=== PATIENT | female | born 1985 | race African-American/Black ===

== ENCOUNTER 2017-03-16 09:25 | Inpatient (IN) | payer MEDICAID ==
[~2017-03-16] VITALS: Ht 172.7 cm; Wt 75.5 kg
[2017-03-16 09:57] VITALS: Ht 172.7 cm; Wt 75.5 kg
[2017-03-16] MEDS ORDERED: PRENAT PO (10:01)
[2017-03-16] MEDS ORDERED: LACTATED RINGER'S 1,000 ML IV SCH (10:43)
[2017-03-16 11:00] LABS: ADD SCAN DIFF NO
[2017-03-16] MEDS ORDERED: METHYLERGONOVINE 0.2 MG INJ IM PRN ×2 (11:00→17:30)
[2017-03-16] MEDS ORDERED: CEFAZOLIN 2 GM/50 ML (PMX) 50 ML IVPB SCH (11:00)
[2017-03-16] MEDS ORDERED: OXYTOCIN 30 UNITS/LR 500 ML IV SCH (11:00)
[2017-03-16] MEDS ORDERED: MISOPROSTOL 200 MCG TAB PR PRN ×2 (11:00→17:30)
[2017-03-16] MEDS ORDERED: CARBOPROST 250 MCG INJ IM PRN ×2 (11:00→17:30)
[2017-03-16] MEDS ORDERED: OXYTOCIN 30 UNITS/LR 500 ML IV PRN ×2 (11:00→17:30)
[2017-03-16 11:04] LABS: BASOPHILS % 0.2 % (0.0-2.0); EOSINOPHILS % 0.7 % (0.0-7.0); LYMPHOCYTES # 1.2 10^3/ul (0.8-2.9); LYMPHOCYTES % 22.4 % (15.0-51.0); MEAN CORPUSCULAR HEMOGLOBIN 31.7 pg (29.0-33.0); MEAN CORPUSCULAR HGB CONC 33.3 g/dl (32.0-37.0); MEAN PLATELET VOLUME 12.9 fl (7.4-10.4); MONOCYTE # 0.6 10^3/ul (0.3-0.9); MONOCYTES % 10.7 % (0.0-11.0); NEUTROPHIL # 3.6 10^3/ul (1.6-7.5); NEUTROPHILS % 65.5 % (39.0-77.0); PLATELET COUNT 142 10^3/UL (140-415); RED BLOOD COUNT 3.79 10^6/ul (4.20-5.40); RED CELL DISTRIBUTION WIDTH 14.1 % (11.5-14.5); WHITE BLOOD COUNT 5.5 10^3/ul (4.8-10.8)
[2017-03-16 11:15] LABS: INR 0.92; PROTIME 12.4 Sec (12.2-14.2)
[2017-03-16 11:16] LABS: PARTIAL THROMBOPLASTIN TIME 25.4 Sec (25.0-35.0)
[2017-03-16] MEDS ORDERED: FENTAnyl 50 MCG/ML VIAL ONE ×2 (13:15→13:30)
[2017-03-16] MEDS ORDERED: morphine SULFATE/PF (10 MG/10 ML) INJ ONE (13:15)
[2017-03-16] MEDS ORDERED: PHENYLephrine (100 MCG/ML) 5ML SYG ONE ×2 (13:16→13:17)
[2017-03-16] MEDS ORDERED: DEXAMETHASONE 4 MG/ML 1 ML INJ ONE (13:17)
[2017-03-16] MEDS ORDERED: MIDAZOLAM 1 MG/ML 2 ML INJ ONE (13:17)
[2017-03-16] MEDS ORDERED: PROPOFOL 20 ML ONE (13:18)
[2017-03-16] MEDS ORDERED: ONDANSETRON 4 MG INJ ONE (13:41)
[2017-03-16] MEDS ORDERED: DIPHENHYDRAMINE 50 MG INJ IV PRN (14:00)
[2017-03-16] MEDS ORDERED: HYDROmorphONE 1 MG/ML SYG IV PRN ×2 (14:00)
[2017-03-16] MEDS ORDERED: ONDANSETRON 4 MG INJ IV PRN (14:00)
[2017-03-16] MEDS ORDERED: ZOLPIDEM 5 MG TAB PO PRN (14:00)
[2017-03-16] MEDS ORDERED: NALOXONE (0.4 MG/ML) INJ IV PRN (14:00)
--- NOTE | 2017-03-16 14:02 | HP ---
Date/Time of Note Date/Time of Note DATE: 03/16/17 TIME: 13:49 OB - History Hx of Present Free Text/Dictation 31 years old female 2 para 1 EDC March 26, 2017 admitted to [facility] due to complete placenta previa she is a 2 para 1 history of one normal vaginal delivery has been under the care of [place] woman's [facility] and her course was uneventful in regards to gestational diabetes or -induced hypertension or any other medical or surgical condition except complete placenta previa. 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 Allergy denies allergy to any known medication Social habit denies a smoking or drinking Family history unremarkable Review of system within normal Physical examination 68 inches tall 166 pounds total weight gain during the 15 pound Temperature 98.6 pulse 103 respiration 19 blood pressure 107/65 Head ears nose and throat negative neck supple no thyromegaly Lungs clear to P&A Heart normal sinus rhythm no murmur Abdomen fundal height 36 cm from symphysis pubis heart rate in 150s category 1 Pelvic examination deferred Extremities no edema no varicosities Impression intrauterine at 38 weeks and 4 days complicated with total placenta previa patient is being prepared to undergo a primary C- section she is been counseled regarding the complication of the surgery including bowel bladder injury infection hemorrhage and due to the placenta previa possibility of blood transfusion she stated she would like to proceed with the operation. Estimated Due Date: Mar 26, 2017 : 2 Para: 1 Care: Good Care Ultrasounds: Normal mid trimester US Obstetrical Complications: None, Other (Placenta previa) Medical Complications: None Past Family/Social History * Past Medical, Surgical, Family and Obstetric Histories reviewed from chart. Rubella: immune RPR/VDRL: Negative GBS Status: Negative HBsAG: Negative OB Admission Exam Physical Exam HEENT: WNL Heart: Rhythm Normal Abdomen: WNL Extremities: Normal Reflexes: Normal Cervical Dilatation: None Heart Rate: 130's Accelerations: Accelerations Present Decelerations: No Decelerations Varibility: Moderate Intensity: Mild Last 72 hours Lab Results CBC & BMP 03/16/17 10:00 OB Assessment/Plan Reason for admission: other (Primary due to placenta previa) ZO FERRARA MD Mar 16, 2017 13:59
--- NOTE | 2017-03-16 14:34 | OPR ---
DATE OF OPERATION: 03/16/2017 PREOPERATIVE DIAGNOSES: 1. Intrauterine at 38 weeks and 4 days. 2. Complete placenta previa. POSTOPERATIVE DIAGNOSES: 1. Intrauterine at 38 weeks and 4 days. 2. Complete placenta previa. OPERATION PERFORMED: Primary transverse low cervical section. SURGEON: Zo Hewitt MD MEDICAL FRONT DESK COORDINATOR: Tushar Salinas MD ANESTHESIA: Spinal. ANESTHESIOLOGIST: Dr. Albarado FINDINGS: Live baby boy, 9 and 9. Baby weighed at 6 pounds 15 ounces. DETAILS OF THE PROCEDURE: Under satisfactory spinal anesthesia, the patient was prepped and draped and placed in supine position, tilted to the left. Pfannenstiel incision was made, carried through the subcutaneous tissue. Bleeders brought under control with electrocautery. Fascia incised to the length of the incision. Rectus muscles from the fascia, divided in midline. Peritoneum exposed, entered through a transverse incision. Exploration of abdomen. Gravid uterus, normal appe aring tubes and ovaries. Bladder flap was developed. Transverse incision was made in the lower seg ment of the uterus. Amniotic sac ruptured. Clear amniotic fluid noted. Live baby boy was delivere d from unengaged vertex. Nasal oropharyngeal suction was performed. Baby handed to the te am for immediate attention. Placenta, which was complete previa but posterior, removed without any difficulty and minimal bleeding from the site of the removal of the placenta from the lower segment, not requiring any sutures. Placenta sent to pathology for evaluation. Uterine cavity cleaned with wet sponge and drainage established. Uterus closed in 2 layers using Monocryl #1 in continuous fas hion. Peritoneal cavity irrigated with warm saline. Sponge, needle, and instrument reported to be correct. Abdominal peritoneum closed with 2-0 chromic catgut continuously. Rectus muscle approxima [place] with few interrupted 2-0 chromic catgut. Fascia closed with #1 PDS in a continuous fashion. [place] bcutaneous tissue was approximated with interrupted 2-0 chromic catgut. Skin closed with geeta. Estimated blood loss 600 to 700 mL. Urine bag contained 200 mL of clear urine. The patient tolerat ed procedure well, transferred to recovery room in a good condition. Dictated By: ZO HUBBARD/NTS Conf#: [id number] DID#: [id number]
[2017-03-16] MEDS: KETOROLAC 30 MG INJ IV PRN (14:39)
[2017-03-16 16:56] VITALS: BP 115/67; PULSE 97; RESP 20
[2017-03-16 16:59] VITALS: BP 118/67; RESP 20
[2017-03-16] MEDS ORDERED: CEFAZOLIN 1 GM/50 ML (PMX) 50 ML IVPB SCH (17:30)
[2017-03-16] MEDS ORDERED: ACETAMINOPHEN/CODEINE #3 TAB PO PRN ×2 (17:30)
[2017-03-16] MEDS ORDERED: OXYCODONE/ACETAMINOPHEN (5/325) TAB PO PRN (17:30)
[2017-03-16] MEDS ORDERED: LANOLIN 7 GM TUBE TOP PRN (17:30)
[2017-03-16] MEDS: IBUPROFEN 600 MG TAB PO SCH (18:00)
[2017-03-16] MEDS: OXYTOCIN 30 UNITS/LR 500 ML IV SCH ×2 (18:05→22:53)
[2017-03-16 19:40] VITALS: BP 100/59; PULSE 100; RESP 18
[2017-03-16] MEDS: SENNA/DOCUSATE NA (8.6MG/50MG) TAB PO SCH (21:02)
[2017-03-17] VITALS: BP 107/54; PULSE 92; RESP 18
[2017-03-17] MEDS: OXYTOCIN 30 UNITS/LR 500 ML IV SCH (03:18)
[2017-03-17 04:30] VITALS: BP 98/53; PULSE 88; RESP 18
[2017-03-17] MEDS: IBUPROFEN 600 MG TAB PO SCH ×5 (06:00→23:38)
[2017-03-17] MEDS ORDERED: LACTATED RINGER'S 1,000 ML IV SCH (06:30)
[2017-03-17 07:13] LABS: ADD SCAN DIFF NO
[2017-03-17 07:16] LABS: BASOPHILS % 0.1 % (0.0-2.0); EOSINOPHILS % 0.2 % (0.0-7.0); HEMATOCRIT 25.3 % (37.0-47.0); HEMOGLOBIN 8.9 g/dl (12.0-16.0); LYMPHOCYTES # 1.6 10^3/ul (0.8-2.9); LYMPHOCYTES % 16.6 % (15.0-51.0); MEAN CORPUSCULAR HEMOGLOBIN 32.6 pg (29.0-33.0); MEAN CORPUSCULAR HGB CONC 35.2 g/dl (32.0-37.0); MEAN CORPUSCULAR VOLUME 92.7 fl (82.0-101.0); MEAN PLATELET VOLUME 12.9 fl (7.4-10.4); MONOCYTE # 0.9 10^3/ul (0.3-0.9); MONOCYTES % 9.6 % (0.0-11.0); NEUTROPHILS % 73.1 % (39.0-77.0); PLATELET COUNT 126 10^3/UL (140-415); RED BLOOD COUNT 2.73 10^6/ul (4.20-5.40); RED CELL DISTRIBUTION WIDTH 13.6 % (11.5-14.5); WHITE BLOOD COUNT 9.6 10^3/ul (4.8-10.8)
[2017-03-17 08:32] VITALS: BP 113/58; PULSE 97; RESP 20
[2017-03-17] MEDS: SENNA/DOCUSATE NA (8.6MG/50MG) TAB PO SCH ×2 (09:08→20:41)
[2017-03-17] MEDS: KETOROLAC 30 MG INJ IV PRN (09:08)
[2017-03-17 12:51] VITALS: BP 108/61; PULSE 93; RESP 20
[2017-03-17] MEDS: OXYCODONE/ACETAMINOPHEN (5/325) TAB PO PRN ×2 (13:03→20:41)
[2017-03-17 16:44] VITALS: BP 115/69; PULSE 95; RESP 20
--- NOTE | 2017-03-17 16:44 | PN ---
Date/Time of Note Date/Time of Note DATE: 03/17/17 TIME: 16:43 OB Subjective Subjective Subjective Post day 1 Afebrile vital signs stable abdomen soft mildly distended bowel sounds present able to pass flatus lochia moderate incision dry extremities normal ambulation recommended Laboratory Tests Test 03/17/17 06:35 White Blood Count 9.610^3/ul Red Blood Count 2.7310^6/ul Hemoglobin 8.9g/dl Hematocrit 25.3% Mean Corpuscular Volume 92.7fl Mean Corpuscular Hemoglobin 32.6pg Mean Corpuscular Hemoglobin Concent 35.2g/dl Red Cell Distribution Width 13.6% Platelet Count 66298^3/UL Mean Platelet Volume 12.9fl Neutrophils % 73.1% Lymphocytes % 16.6% Monocytes % 9.6% Eosinophils % 0.2% Basophils % 0.1% Nucleated Red Blood Cells % 0.0/100WBC Neutrophils # 7.010^3/ul Lymphocytes # 1.610^3/ul Monocytes # 0.910^3/ul Eosinophils # 0.010^3/ul Basophils # 0.010^3/ul Nucleated Red Blood Cells # 0.010^3/ul Current Medications Medications (Trade) Dose Ordered Sig/Octavio Route PRN Reason Start Time Stop Time Status Last Admin Dose Admin Cefazolin Sodium/ Dextrose 50 ml @ 100 mls/hr ONCE IVPB 03/16/17 11:00 03/16/17 17:07 DC Oxytocin/Lactated Ringer's 500 ml @ 125 mls/hr ONCE IV 03/16/17 11:00 03/16/17 17:07 DC 03/16/17 14:35 Oxytocin/Lactated Ringer's 500 ml @ 0 mls/hr ONCE PRN IV For Hemorrhage Management 03/16/17 11:00 03/16/17 17:07 DC Methylergonovine Maleate (Methergine) 0.2 mg ONCE PRN IM VAGINAL BLEEDING 03/16/17 11:00 03/16/17 17:07 DC Carboprost Tromethamine (Hemabate) 250 mcg ONCE PRN IM VAGINAL BLEEDING 03/16/17 11:00 03/16/17 17:07 DC Misoprostol 1000 mcg 1,000 mcg ONCE PRN [place] VAGINAL BLEEDING 03/16/17 11:00 03/16/17 17:07 DC Lactated Ringer's (Lr) 1,000 ml @ 125 mls/hr Q8H IV 03/16/17 10:43 03/16/17 17:07 DC 03/16/17 11:49 Naloxone HCl (Narcan) 0.1 mg Q2M PRN IV FOR RESP RATE 8 OR LESS 03/16/17 14:00 03/17/17 12:38 DC Ketorolac Tromethamine (Toradol) 30 mg Q6H PRN IV PAIN 03/16/17 14:00 03/17/17 12:38 DC 03/17/17 09:08 Hydromorphone HCl (Dilaudid) 0.2 mg Q3H PRN IV PAIN LEVEL 1-5 03/16/17 14:00 03/17/17 12:38 DC Hydromorphone HCl (Dilaudid) 0.4 mg Q3H PRN IV PAIN LEVEL 6-10 03/16/17 14:00 03/17/17 12:38 DC 03/16/17 16:05 Diphenhydramine HCl (Benadryl) 25 mg Q6H PRN IV ITCHING 03/16/17 14:00 03/17/17 12:38 DC Ondansetron HCl (Zofran Inj) 4 mg Q6H PRN IV NAUSEA AND/OR VOMITING 03/16/17 14:00 03/17/17 12:38 DC Zolpidem Tartrate (Ambien) 5 mg HS MAY REPEAT X 1 PRN PO INSOMNIA 03/16/17 14:00 03/17/17 12:38 DC Miscellaneous Information (* Miscellaneous Pharmacy Order) Duramorph: .2 mg . Spi... GIVEN XX 03/16/17 14:00 03/17/17 12:38 DC Acetaminophen/ Codeine Phosphate (Tylenol No.3) 1 tab Q4H PRN PO PAIN LEVEL 4-6 03/16/17 17:30 Acetaminophen/ Codeine Phosphate (Tylenol No.3) 2 tab Q4H PRN PO PAIN LEVEL 7-10 03/16/17 17:30 Oxycodone/ Acetaminophen (Percocet (5/ 325)) 1 tab Q4H PRN PO PAIN LEVEL 4-6 03/16/17 17:30 Oxycodone/ Acetaminophen (Percocet (5/ 325)) 2 tab Q4H PRN PO PAIN LEVEL 7-10 03/16/17 17:30 03/17/17 13:03 Ibuprofen (Motrin) 600 mg Q6 PO 03/16/17 18:00 03/17/17 13:03 Simethicone (Mylicon) 160 mg Q8H PRN PO DISTENSION/GAS/BLOATING 03/16/17 17:30 03/17/17 09:08 Senna/Docusate Sodium (Senokot-S) 1 tab BID PO 03/16/17 21:00 03/17/17 09:08 Lanolin (Mxg-T-Lrdmft) 1 applic BEDSIDE MEDICATION PRN TOP BEDSIDE FOR ROSALEE TO NIPPLES 03/16/17 17:30 Diphtheria/ Tetanus/Acell Pertussis 0.5 ml 0.5 ml ONCE ONCE IM* 03/19/17 09:00 03/19/17 09:01 Oxytocin/Lactated Ringer's 500 ml @ 0 mls/hr ONCE PRN IV For Hemorrhage Management 03/16/17 17:30 Methylergonovine Maleate (Methergine) 0.2 mg ONCE PRN IM VAGINAL BLEEDING 03/16/17 17:30 Carboprost Tromethamine (Hemabate) 250 mcg ONCE PRN IM VAGINAL BLEEDING 03/16/17 17:30 Misoprostol 1000 mcg 1,000 mcg ONCE PRN [place] VAGINAL BLEEDING 03/16/17 17:30 Cefazolin Sodium 50 ml @ 100 mls/hr ONCE IVPB 03/16/17 17:30 03/16/17 17:59 DC 03/16/17 18:05 Oxytocin/Lactated Ringer's 500 ml @ 125 mls/hr Q4H IV 03/16/17 17:02 03/17/17 03:18 Lactated Ringer's (Lr) 1,000 ml @ 125 mls/hr Q8H IV 03/17/17 06:30 03/17/17 07:09 Morphine Sulfate (Duramorph) 10 mg STK-MED ONCE .ROUTE 03/16/17 13:15 03/17/17 10:36 DC Fentanyl (Sublimaze) 100 mcg STK-MED ONCE .ROUTE 03/16/17 13:15 03/17/17 10:36 DC Phenylephrine HCl (Gregory-Synephrine Inj Syg) 500 mcg STK-MED ONCE .ROUTE 03/16/17 13:16 03/17/17 10:37 DC Dexamethasone (Decadron) 4 mg STK-MED ONCE .ROUTE 03/16/17 13:17 03/17/17 10:37 DC Phenylephrine HCl (Gregory-Synephrine Inj Syg) 500 mcg STK-MED ONCE .ROUTE 03/16/17 13:17 03/17/17 10:38 DC Midazolam HCl 2 mg 2 mg STK-MED ONCE .ROUTE 03/16/17 13:17 03/17/17 10:38 DC Propofol (Diprivan) 20 ml @ ud STK-MED ONCE .ROUTE 03/16/17 13:18 03/17/17 10:38 DC Fentanyl (Sublimaze) 100 mcg STK-MED ONCE .ROUTE 03/16/17 13:30 03/17/17 10:39 DC Ondansetron HCl (Zofran Inj) 4 mg STK-MED ONCE .ROUTE 03/16/17 13:41 03/17/17 10:40 DC ZO FERRARA MD Mar 17, 2017 16:44
[2017-03-17 20:00] VITALS: BP 107/55; PULSE 95; RESP 20
[2017-03-18 04:00] VITALS: BP 107/62; PULSE 86; RESP 20
[2017-03-18] MEDS: IBUPROFEN 600 MG TAB PO SCH ×4 (05:38→23:30)
[2017-03-18] MEDS: OXYCODONE/ACETAMINOPHEN (5/325) TAB PO PRN ×2 (06:18→16:06)
[2017-03-18 07:45] VITALS: BP 110/70; PULSE 86; RESP 18
[2017-03-18] MEDS: SENNA/DOCUSATE NA (8.6MG/50MG) TAB PO SCH ×2 (09:11→21:04)
--- NOTE | 2017-03-18 12:35 | PN ---
Date/Time of Note Date/Time of Note DATE: 03/18/17 TIME: 12:33 OB Subjective Subjective Subjective Post day2 Afebrile vital signs are stable abdomen soft incision dry bowel sounds present able to pass flatus no bowel movement ambulation encouraged. ZO FERRARA MD Mar 18, 2017 12:35
[2017-03-18 15:57] VITALS: BP 122/76; PULSE 98; RESP 18
[2017-03-18 20:00] VITALS: BP 109/56; PULSE 93; RESP 20
[2017-03-19 04:00] VITALS: BP 115/68; PULSE 85; RESP 18
[2017-03-19] MEDS: IBUPROFEN 600 MG TAB PO SCH ×2 (05:30→12:10)
[2017-03-19] MEDS ORDERED: NA PHOSPHATE/BIPHOS 133 ML ENEMA PR ONE (05:30)
[2017-03-19 08:30] VITALS: BP 105/66; PULSE 87; RESP 19
[2017-03-19] MEDS ORDERED: DIPHTH/TET/ACEL PERTUSS (ADULT) 0.5 ML VIAL IM* ONE (09:00)
[2017-03-19] MEDS: SENNA/DOCUSATE NA (8.6MG/50MG) TAB PO SCH (09:09)
--- NOTE | 2017-03-19 11:07 | PD.PPDC ---
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
--- NOTE | 2017-03-19 11:10 | DS ---
Date/Time of Note Date/Time of Note DATE: 03/19/17 TIME: 11:07 Discharge Summary Admission/Discharge Info Admit Date/Time Mar 16, 2017 at 09:25 Discharge Date/Time March 19, 2017 at 11 5 Final Diagnosis Post primary date 3 Patient Condition: Good Procedures Primary due to complete placenta previa Hx of Present Illness Term complete placenta previa Hospital Course Satisfactory uneventful Home Meds Reported Medications Multivit/Min/Fol Ac/Iron/Pren* ( S*) 1 Tab Tab, 1 TAB PO DAILY, TAB 03/16/17 Follow-up Plan Appointment clinic in 4 days to discontinue geeta, patient given instructions for the wound care at home diet and activity. Primary Care Provider Care Physician No Primary Time spent on discharge: < 30 minutes ZO FERRARA MD Mar 19, 2017 11:10
[2017-03-19] MEDS ORDERED: IBUP-1542 PO (13:08)
[2017-03-19] MEDS ORDERED: ACET1TAB40 PO (13:09)
== END 2017-03-19 17:27 | disposition home or self-care (01) | DRG 766 ==
LOC: L-D 09:25 → PP1 16:39
PROVIDERS: ADMIT Obstetrics & Gynecology; ATTEND Obstetrics & Gynecology
PROC: 10D00Z1 Extraction of Products of Conception, Low, Open Approach (ICD-10-PCS; principal; 2017-03-16 12:30)
PROC: 3E0234Z Introduction of Serum, Toxoid and Vaccine into Muscle, Percutaneous Approach (ICD-10-PCS; 2017-03-19)
DX: O44.03 Complete placenta previa NOS or without hemorrhage, third trimester (principal); Z3A.38 38 weeks gestation of pregnancy; Z37.0 Single live birth; Z23 Encounter for immunization
CPT/HCPCS: 85025; 85610; 85730; 86592; 86850; 86900; 86901; 86920; 88307; 90715; 99464; J0690; J1100; J1170; J1885; J2250; J2274; J2370; J2405; J2590; J3010; J7120